=== PATIENT | female | born 1940 | race Caucasian/White ===

== ENCOUNTER 2017-10-20 10:00 | Inpatient (IN) ==
[2017-10-20 12:20] LABS: Appearance,Urine CLEAR; Bilirubin,Urine NEG (NEG); Color,Urine STRAW; Glucose,Urine (UA) NEGATIVE (NEG); Leukocyte Esterase,Urine NEG /uL (NEG); Nitrate,Urine NEG (NEG); Protein,Urine NEG (NEG); Specific Gravity,Urine 1.003 (1.000-1.035); Urine Blood NEG mg/dL (<0.03); Urobilinogen,Urine NEG (NEG)
[2017-10-20 12:58] LABS: Blood Urea Nitrogen 14 mg/dl (8-23)
[2017-10-20 13:03] LABS: Basophils # (Auto) 0 K/mcL (0.0-0.3); Basophils % (Auto) 0.4 % (0.0-2.0); Eosinophils # (Auto) 0.2 K/mcL (0.0-0.7); Eosinophils % (Auto) 3.5 % (0.0-7.0); Lymphocytes # (Auto) 1.4 K/mcL (1.5-4.8); Mean Cell Volume 94.1 fL (80.0-100.0); Mean Corpuscular HGB Conc 33.9 g/dL (31.0-36.0); Mean Corpuscular Hemoglobin 31.9 pg (26.0-34.0); Monocytes # (Auto) 0.5 K/mcL (0.1-0.9); Monocytes % (Auto) 9.1 % (1.0-12.0); Platelet Count 236 K/mcL (140-440); RBC 4.56 M/mcL (4.00-5.20); Red Cell Distribution Width 13.8 % (11.5-14.5)
[2017-10-26] MEDS ORDERED: CELECOXIB 200 MG CAPSULE PO SCH (06:00)
[2017-10-26] MEDS ORDERED: oxyCODONE 10 MG TAB.ER.12H PO SCH (06:00)
[2017-10-26] MEDS ORDERED: PREGABALIN 75 MG CAPSULE PO SCH (06:00)
[2017-10-26] MEDS ORDERED: ceFAZolin 1 GM VIAL IV SCH (06:00)
[2017-10-26] MEDS ORDERED: KETOROLAC 30 MG, ROPIVACAINE HCL/PF 49.5 ML, EPINEPHrine 0.5 MG, 0.9 % SODIUM CHLORIDE ... IJ ONE (08:00)
[2017-10-26] MEDS ORDERED: ONDANSETRON 4 MG/2 ML VIAL IV ONE (17:00)
[2017-10-26] MEDS ORDERED: MIDAZOLAM 5 MG/5 ML VIAL IV ONE (17:00)
[2017-10-26] MEDS ORDERED: PROPOFOL 200 MG/20 ML VIAL IV ONE (17:00)
[2017-10-26] MEDS ORDERED: LIDOCAINE HCL/PF 100 MG/5 ML SYRINGE IV ONE (17:00)
[2017-10-26] MEDS ORDERED: DEXAMETHASONE 10 MG/ML VIAL IV ONE (17:00)
[2017-10-26] MEDS ORDERED: ROPIVACAINE HCL/PF 20 ML VIAL IJ ONE (17:00)
[2017-10-26] MEDS ORDERED: GENTAMICIN SULFATE 800 MG/20 ML VIAL IR ONE (17:37)
[2017-10-26] MEDS ORDERED: IPRATROPIUM/ALBUTEROL 3 ML AMPUL.NEB NEB PRN (17:54)
[2017-10-26] MEDS ORDERED: METHOCARBAMOL 1,000 MG/10 ML VIAL IV PRN (17:54)
[2017-10-26] MEDS ORDERED: PROMETHAZINE 25 MG/ML VIAL IV PRN (17:54)
[2017-10-26] MEDS ORDERED: ONDANSETRON 4 MG/2 ML VIAL IV PRN (17:54)
[2017-10-26] MEDS ORDERED: ACETAMINOPHEN 1,000 MG/100 ML BOTTLE IV ONE (17:54)
[2017-10-26] MEDS ORDERED: diphenhydrAMINE 50 MG/ML VIAL IV PRN (17:54)
[2017-10-26] MEDS ORDERED: MEPERIDINE 25 MG/ML SYRINGE IV PRN (17:54)
[2017-10-26] MEDS ORDERED: fentaNYL 100 MCG/2 ML VIAL IV PRN (17:54)
[2017-10-26] MEDS ORDERED: NALOXONE HCL 0.4 MG/ML VIAL IV PRN (17:54)
[2017-10-26] MEDS ORDERED: ATROPINE SULFATE 0.4 MG/ML VIAL IV PRN (17:54)
[2017-10-26] MEDS ORDERED: FLUMAZENIL 0.1 MG/ML ML IV PRN (17:54)
[2017-10-26] MEDS ORDERED: ePHEDrine 50 MG/ML AMPUL IV PRN (17:54)
[2017-10-26] MEDS ORDERED: LACTATED RINGERS 1,000 ML IV SCH (18:00)
--- NOTE | 2017-10-26 18:22 | Brief Operative Note ---
Date of procedure: 10/26/17 Pre-op diagnosis: right knee oa Post-op diagnosis: same Procedure: right total knee arthroplasty Grafts/Implants: Yes Anesthesia: spinal Complications: none Surgeon: Asher Hobbs Repeater Operator: Kristina Cunha Estimated blood loss (cc): 150 Tourniquet Time (Minutes): 59 Specimens Removed/Pathology: none sent Condition: stable Disposition: PACU
[2017-10-26] MEDS ORDERED: METHOCARBAMOL 750 MG TABLET PO PRN (18:23)
[2017-10-26] MEDS ORDERED: BISACODYL 10 MG SUPP.RECT PR PRN (18:23)
[2017-10-26] MEDS ORDERED: POLYETHYLENE GLYCOL 3350 17 GM PACKET PO PRN (18:23)
[2017-10-26] MEDS ORDERED: TRANEXAMIC ACID 1,000 MG/10 ML VIAL IV ONE ×2 (18:23→19:01)
[2017-10-26] MEDS ORDERED: FLEETS ADULT ENEMA PR PRN (18:23)
[2017-10-26] MEDS ORDERED: MAGNESIUM HYDROXIDE 30 ML ORAL.SUSP PO PRN (18:23)
[2017-10-26] MEDS ORDERED: ONDANSETRON ODT 4 MG TABLET SL PRN (18:23)
[2017-10-26] MEDS ORDERED: BENZOCAINE/MENTHOL 1 LOZENGE PO PRN (18:23)
[2017-10-26] MEDS: METOPROLOL TARTRATE 5 MG/5 ML VIAL IV PRN ×2 (19:11→19:21)
--- NOTE | 2017-10-26 19:12 | XRay Report ---
HISTORY: Reason for Exam:Post-Op Total Knee FINDINGS: There is a well-positioned total knee prosthesis. The patella is positioned inferior, relative to the femur. This should be compared with the preoperative x-ray to determine if this is new or if it is a chronic finding. IMPRESSION: Well-positioned knee prosthesis Low-lying patella Interpreted and Authenticated by: Charlie Lin 10/26/17
[2017-10-26] MEDS ORDERED: PEG OU PRN (19:30)
[2017-10-26] MEDS ORDERED: PROPYLENE GLYCOL OU PRN (19:30)
[2017-10-26] MEDS: 0.9 % SODIUM CHLORIDE 1,000 ML IV SCH (19:49)
[2017-10-26] MEDS: ONDANSETRON 4 MG/2 ML VIAL IV PRN (20:09)
[2017-10-26] MEDS ORDERED: LATANOPROST OPHTH DROPS 2.5ML BOTTLE OU SCH (21:00)
[2017-10-26] MEDS ORDERED: SIMVASTATIN 20 MG TABLET PO SCH (21:00)
[2017-10-26] MEDS ORDERED: SENNOSIDES 1 TABLET PO SCH (21:00)
[2017-10-26] MEDS: DOCUSATE SODIUM 100 MG CAPSULE PO SCH (21:27)
[2017-10-26] MEDS: ASPIRIN 325 MG ENTERIC COATED TABLET PO SCH (21:28)
[2017-10-26] MEDS: 0.9 % SODIUM CHLORIDE 10 ML SYRINGE IV SCH (21:28)
[2017-10-26] MEDS: ceFAZolin 1 GM VIAL IV SCH (21:28)
[2017-10-26] MEDS: MAGNESIUM OXIDE 400 MG TABLET PO SCH (21:28)
[2017-10-26] MEDS: METOPROLOL SUCCINATE 25 MG TAB.XL.24H PO SCH (21:28)
[2017-10-26] MEDS: CYCLOSPORINE OU SCH (21:32)
[2017-10-26] MEDS: HYDROcodone/APAP 10/325MG TABLET PO PRN (21:55)
[2017-10-26] MEDS: KETOROLAC 15 MG/ML VIAL IV SCH (23:57)
[2017-10-27] MEDS: HYDROcodone/APAP 10/325MG TABLET PO PRN (00:26)
[2017-10-27] MEDS: ONDANSETRON 4 MG/2 ML VIAL IV PRN ×3 (00:26→11:54)
[2017-10-27] MEDS: 0.9 % SODIUM CHLORIDE 1,000 ML IV SCH ×3 (04:00→13:01)
[2017-10-27] MEDS: KETOROLAC 15 MG/ML VIAL IV SCH ×2 (05:38→11:48)
[2017-10-27] MEDS: 0.9 % SODIUM CHLORIDE 10 ML SYRINGE IV SCH (05:39)
[2017-10-27] MEDS: ceFAZolin 1 GM VIAL IV SCH (05:39)
--- NOTE | 2017-10-27 07:19 | Orthopedic Progress Note ---
Subjective Patient information: Note initiated : 10/27/17 at 7:17 am Service Date, if different from initiated Date: [] Patient: Emilee Leigh 76 y/o F admitted on 10/26/17 for Right Total Knee Arthroplasty. Chief Complaint: [] Interval history: doing well. pain under control Objective Vital signs: Vital Signs Temp Pulse Resp BP BP Pulse Ox 10/27/17 04:39 97.6 F 74 12 109/52 94 10/27/17 00:00 97.4 F 88 12 141/71 96 10/26/17 21:02 84 144/81 98 10/26/17 20:48 88 132/77 89 L 10/26/17 20:18 88 135/67 93 10/26/17 20:03 92 H 145/72 94 10/26/17 19:48 96 H 145/79 92 10/26/17 19:32 93 H 135/77 10/26/17 19:26 97.2 F 90 13 137/69 100 10/26/17 19:13 111 H 11 L 133/70 100 10/26/17 19:08 102 H 11 L 130/66 99 10/26/17 19:03 108 H 13 128/58 100 10/26/17 18:58 109 H 13 115/57 100 10/26/17 18:53 99 H 10 L 103/50 99 10/26/17 18:48 97 H 10 L 101/48 99 10/26/17 18:43 97.2 F 98 H 16 99/50 98 10/26/17 13:22 97.1 F 16 140/78 94 Intake and Output 10/26/17 10/27/17 10/27/17 21:59 05:59 13:59 Intake Total 1850 / 1850 2400 / 2400 Output Total 100 / 100 175 / 175 Balance 1750 / 1750 2225 / 2225 Intake: IV 1850 / 1850 1000 / 1000 Sodium Chloride 0.9% 1,000 ml @ 1000 / 1000 125 mls/hr IV .Q8H [facility] Rx#: [id number] Oral 1400 / 1400 Output: Void Amount 175 / 175 Estimated Blood Loss 100 / 100 Other: Meal 4 saltine crackers Percent of Meal Consumed 100% Feeding Ability Independent # Voids 1 1 Weight 164 lb Intake & Output: Intake & Output 1210/27/17 10/27/17 21:59 05:59 13:59 Intake Total 1850 / 1850 2400 / 2400 Output Total 100 / 100 175 / 175 Balance 1750 / 1750 2225 / 2225 Weight 164 lb Intake: IV 1850 / 1850 1000 / 1000 Sodium Chloride 0.9% 1,000 ml @ 1000 / 1000 125 mls/hr IV .Q8H [facility] Rx#: [id number] Oral 1400 / 1400 Output: Void Amount 175 / 175 Estimated Blood Loss 100 / 100 Other: Meal 4 saltine crackers Percent of Meal Consumed 100% Feeding Ability Independent # Voids 1 1 Incision: Yes healing Incision clean and dry: Yes Dressing: Yes clean, Yes dry, Yes intact Weight bearing status: full Neurological exam IM: Yes abnormal gait, Yes alert, Yes oriented X3, Yes motor sensory intact, No neurovascular intact Extremities exam IM: Yes calf tenderness, Yes neurovascular intact - Labs CBC & BMP: 10/27/17 05:17 10/20/17 10:58 Labs: Orthopedic Labs 10/20/17 10:58 PT 12.9 INR 1.0 10/27/17 10/20/17 05:17 10:58 Hgb 12.5 14.6 Hct 36.7 42.9 Assessment and Plan (1) Knee osteoarthritis pod 1 s/p tka wbat pain control dvt prophylaxis d/c planning, home today vs tommorow depending on pt Status: Acute
--- NOTE | 2017-10-27 07:20 | Discharge Summary ---
Ortho Discharge - TKA - Patient Instructions Diet: Regular Diet Activity: activity as tolerated, weight bearing as tolerated Total Knee Protocol: For Total Knee: Start ROM NELSON with stationary bike or rocking chair. Work on gaining full extension of knee. Posterior dislocation precautions provided. Hip abductor strengthening and gait training instructions provided. Apply Cryocuff as instructed. Dressing Care: May shower in 2 days - Problem Maintenance (1) Knee osteoarthritis Status: Acute - Follow Up Plan Disposition: Home, Self-Care Prognosis: Good Rehab Potential: Good I certify that the patient requires SNF services: Yes Overall status at discharge: patient is progressing back to baseline
[2017-10-27] MEDS ORDERED: OMEPRAZOLE 20 MG CAPSULE PO PRN (07:30)
--- NOTE | 2017-10-27 07:37 | Operative Note ---
DATE OF OPERATION: 10/26/2017 PREOPERATIVE DIAGNOSIS: Degenerative joint disease, right knee. POSTOPERATIVE DIAGNOSIS: Degenerative joint disease, right knee. PROCEDURE: Right total knee arthroplasty. SURGEON: Ernesto Hobbs M.D. DELIVERY CLERK SURGEON: Kristina Cunha PA-C ANESTHESIA: Spinal with LMA assist. ESTIMATED BLOOD LOSS: 100 mL. COMPLICATIONS: None noted. SPECIMENS REMOVED: None. DRAINS: None. TOURNIQUET TIME: 300 mmHg at 59 minutes. IMPLANTS: DePuy CMW2 bone cement 20 grams x4, DePuy Attune femoral posterior stabilized size 5 right narrow, DePuy Attune tibial insert fixed bearing posterior stabilized size 5, 7 mm AOX, DePuy Attune tibial based fixed bearing size 4 cemented, DePuy Attune patella medialized dome 35 mm cemented AOX. INDICATIONS: The patient has had a long-standing history of worsening pain in the knee that has failed conservative treatment. Radiographs have confirmed advanced degenerative joint disease. After a long discussion about treatment options, the patient elected to proceed with a knee arthroplasty. The risks and benefits were discussed with the patient in detail including, but not limited to, the risks of anesthesia, problems with the heart or lungs related to anesthesia, infection, compromise or injury to the nerves and blood vessels, deep venous thrombosis, pulmonary embolism, pneumonia, continued pain after surgery, worsening pain or symptoms after surgery, swelling, loss of motion, instability, leg length discrepancy, and need for repeat surgery. DESCRIPTION OF PROCEDURE: The patient was seen in the pre-anesthesia waiting room where all questions were answered and the correct side and site were identified and marked. The patient was transferred to the operating room and administered the anesthetic and given pre-operative antibiotics. A time-out was then called. The extremity was prepped and draped, exsanguinated, and the tourniquet was inflated to 300 mmHg. A midline skin incision was then made with a standard medial parapatellar arthrotomy. Debridement of the menisci, ACL, and PCL was performed followed by balancing releases in the medial lateral plane. We then established intramedullary access to both the femur and tibia in a standard fashion. The femoral guide ramon was initially placed with the distal femoral guide, pinned into place, and the distal femoral cut was performed and checked with a flat plate. We then turned our attention to the tibia. The intramedullary guide was placed with the proximal tibial cutting block. The block was appropriately positioned off the affected side, varus and valgus was checked with the extra-medullary guide, and the block was pinned into place. The proximal tibial cut was performed and the tibia was prepared for the tibial implant with appropriate rotation. The tibia, femur, and posterior compartment were debrided of osteophytes, loose bodies, and meniscal fragments We then used the gap balancing technique to balance extension with the first two cuts and good balancing was obtained with a 10 millimeter gap block. We turned our attention back to the femur and used the referencing block and implant to size appropriately. Using the gap balancing technique for the flexion space we set our rotation of the femur off the tibial cut. Anesthesia gave the patient 1 gram of Tranexamic Acid via an intravenous route. We placed the 4 in 1 cutting block and made anterior, posterior, and chamfer cuts. Box plasty cuts were then made in a standard fashion for the posterior stabilized prosthesis. We then completed osteophyte release and posterior capsule release from the posterior compartment. Trials were placed and we chose the polyethylene insert thickness that provided the best stability in all planes. With the trials in place, we did a measured resection for a resurfacing patella. We sized the patella and placed the patella trial and performed a lateral facetectomy with the saw and rongeur. Good tracking was obtained. We removed all trials, irrigated and dried all cut surfaces. We cemented the components into place including tibia, femur and patella. We placed a trial liner and held the knee in full extension with the patella compressed while the cement cured. We then removed all excess cement and placed the final polyethylene tibiofemoral component. Irrigation with 3 liters of antibiotic saline was then performed using jet-lavage. We let the tourniquet down and coagulated bleeding vessels. We injected a 100 cubic centimeter volume including Ropivacaine 49.25 cubic centimeters at 5 milligrams per cubic centimeter, Ketorolac 30 milligrams, and Epinephrine 0.5 milligrams into 100 cubic centimeters volume of normal saline. We closed the retinaculum with looped #0 Maxon. We closed the subcutaneous tissue and skin in layers out to reed in the skin. A sterile pressure dressing was applied. All needle and sponge counts were correct. The patient was transferred to the recovery room in stable condition. OPAL:amber Job ID: [id number] Doc ID: [id number] Ernesto Hobbs MD
[2017-10-27] MEDS ORDERED: MULTIVIT,THER IRON,CA,FA & MIN 1 TABLET PO SCH (09:00)
[2017-10-27] MEDS ORDERED: FOLIC ACID 1 MG TABLET PO SCH (09:00)
[2017-10-27] MEDS: MAGNESIUM OXIDE 400 MG TABLET PO SCH (09:06)
[2017-10-27] MEDS: DOCUSATE SODIUM 100 MG CAPSULE PO SCH (09:06)
[2017-10-27] MEDS: METOPROLOL SUCCINATE 25 MG TAB.XL.24H PO SCH (09:07)
[2017-10-27] MEDS: ASPIRIN 325 MG ENTERIC COATED TABLET PO SCH (09:07)
[2017-10-27] MEDS: CYCLOSPORINE OU SCH (09:07)
[2017-10-29] MEDS ORDERED: ESTROGENS, CONJUGATED 1 APPFUL TUBE 30GM VAG SCH (21:00)
== END 2017-10-27 16:15 | disposition home or self-care (01) | DRG 470 ==
LOC: MEDSUR 10-26 12:24
PROVIDERS: ADMIT Orthopaedic Surgery Sports Medicine; ATTEND Orthopaedic Surgery Sports Medicine